=== PATIENT | female | born 1990 | race American Indian/Alaskan Native ===

== ENCOUNTER 2018-12-08 18:59 | Emergency (ER) | payer OTHER ==
--- NOTE | 2018-12-08 20:54 | Emergency Department Report ---
Blank Doc - Documentation Documentation: This is a 28-year-old female that presents with bilateral leg swelling and . This initial assessment/diagnostic orders/clinical plan/treatment(s) is/are subject to change based on patient's health status, clinical progression and re- assessment by fellow clinical providers in the ED. Further treatment and workup at subsequent clinical providers discretion. Patient/guardians urged not to elope from the ED as their condition may be serious if not clinically assessed and managed. Initial orders include: 1- Patient sent to [facility] for further evaluation and treatment 2- labs 3- EKG 4- CXR
[2018-12-08 22:21] LABS: Basophils # (Auto) 0.1 K/mm3 (0.0-0.1); Basophils % (Auto) 0.9 % (0.0-1.8); Eosinophils # (Auto) 0.1 K/mm3 (0.0-0.4); Eosinophils % (Auto) 1.3 % (0.0-4.3); Hematocrit 40.2 % (30.3-42.9); Hemoglobin 13.2 gm/dl (10.1-14.3); Lymphocytes # (Auto) 2.9 K/mm3 (1.2-5.4); Lymphocytes % (Auto) 26.3 % (13.4-35.0); Mean Corpuscular HGB Conc 33 % (30-34); Mean Corpuscular Volume 82 fl (79-97); Monocytes # (Auto) 0.7 K/mm3 (0.0-0.8); Monocytes % (Auto) 6.9 % (0.0-7.3); Platelet Count 253 K/mm3 (140-440); Red Blood Count 4.89 M/mm3 (3.65-5.03); Red Cell Distribution Width 19.8 % (13.2-15.2)
--- NOTE | 2018-12-08 22:24 | Emergency Department Report ---
ED Shortness of Breath HPI - General Chief Complaint: Dyspnea/Respdistress Stated Complaint: SOB/LEGS/ANKLE/FEET SWOLLEN Time Seen by Provider: 12/08/18 20:53 Source: patient Mode of arrival: Ambulatory Limitations: No Limitations - History of Present Illness Initial Comments: 28-year-old female with no significant past medical history [facility] complaining of intermittent ankle and foot swelling 1 week. Symptoms appeared to improve yesterday but returned by this afternoon. For the first time this afternoon she also experienced dyspnea on exertion, fatigue with minimal exertion, and lightheaded feeling. He is having worsening swelling on the right. To the left and having sharp pains from her knee down to her foot. She denies chest pain, calf tenderness, recent travel, control pill use, history of PE/DVT, or recent fever or infection. - Related Data Allergies Allergy/AdvReac Type Severity Reaction Status Date / Time No Known Allergies Allergy Verified 12/08/18 19:11 ED Review of Systems ROS: Stated complaint: SOB/LEGS/ANKLE/FEET SWOLLEN Other details as noted in HPI Comment: All other systems reviewed and negative ED Past Medical Hx - Social History Smoking Status: Never Smoker ED Physical Exam - General Limitations: No Limitations - Other Other exam information: General: No limitations, patient is alert in no acute distress Head exam: Atraumatic, normocephalic Eyes exam: Normal appearance, pupils equal reactive to light, extraocular movements intact ENT: Moist mucous membrane Neck exam: Normal inspection, full range of motion, no meningismus nontender Respiratory exam: Clear to auscultation bilateral, no wheezes, rales, crackles Cardiovascular: Normal rate and rhythm, normal heart sounds Abdomen: Soft, nondistended, and nontender, with normal bowel sounds, no rebound, or guarding Extremity: Full range of motion, mild bilateral edema mildly greater on the right compared to the left primarily at the ankle and foot. Minimal pitting. 2+ DP pulses equal bilaterally. No calf tenderness. No warmth or erythema. Back: Normal Inspection, full range of motion, no tenderness Neurologic: Alert, oriented x3, cranial nerves intact, no motor or sensory deficit Psychiatric: normal affect, normal mood Skin: Warm, dry, intact ED Course Vital Signs 12/08/18 12/08/18 12/08/18 20:53 22:24 22:30 Temperature 98.4 F 98.6 F Pulse Rate 104 H 96 H 98 H Respiratory 18 12 13 Rate Blood Pressure 140/94 133/79 Blood Pressure 134/87 [Left] O2 Sat by Pulse 100 100 99 Oximetry 12/08/18 12/08/18 12/09/18 22:45 23:00 02:30 Temperature Pulse Rate 96 H 99 H Respiratory 15 15 16 Rate Blood Pressure 139/83 132/84 Blood Pressure [Left] O2 Sat by Pulse 100 99 Oximetry ED Medical Decision Making - Lab Data Result diagrams: 12/08/18 21:53 12/08/18 21:53 Lab Results 12/08/18 12/08/18 12/08/18 Range/Units 21:53 21:53 21:53 WBC 10.9 (4.5-11.0) K/mm3 RBC 4.89 (3.65-5.03) M/mm3 Hgb 13.2 (10.1-14.3) gm/dl Hct 40.2 (30.3-42.9) % MCV 82 (79-97) fl MCH 27 L (28-32) pg MCHC 33 (30-34) % RDW 19.8 H (13.2-15.2) % Plt Count 253 (140-440) K/mm3 Lymph % (Auto) 26.3 (13.4-35.0) % [place] % (Auto) 6.9 (0.0-7.3) % Eos % (Auto) 1.3 (0.0-4.3) % Baso % (Auto) 0.9 (0.0-1.8) % Lymph # 2.9 (1.2-5.4) K/mm3 [place] # 0.7 (0.0-0.8) K/mm3 Eos # 0.1 (0.0-0.4) K/mm3 Baso # 0.1 (0.0-0.1) K/mm3 Seg Neutrophils % 64.6 (40.0-70.0) % Seg Neutrophils # 7.1 (1.8-7.7) K/mm3 D-Dimer (0-234) ng/mlDDU Sodium (137-145) mmol/L Potassium (3.6-5.0) mmol/L Chloride (98-107) mmol/L Carbon Dioxide (22-30) mmol/L Anion Gap mmol/L BUN (7-17) mg/dL Creatinine (0.7-1.2) mg/dL Estimated GFR ml/min BUN/Creatinine Ratio % Glucose (65-100) mg/dL Calcium (8.4-10.2) mg/dL Total Bilirubin (0.1-1.2) mg/dL AST (5-40) units/L ALT (7-56) units/L Alkaline Phosphatase (35-129) units/L NT-Pro-B Natriuret Pep 8.51 (0-450) pg/mL Total Protein (6.3-8.2) g/dL Albumin (3.9-5) g/dL Albumin/Globulin Ratio % HCG, Qual Negative (Negative) Urine Color (Yellow) Urine Turbidity (Clear) Urine pH (5.0-7.0) Ur Specific [place] (1.003-1.030) Urine Protein (Negative) mg/dL Urine Glucose (UA) (Negative) mg/dL Urine Ketones (Negative) mg/dL Urine Blood (Negative) Urine Nitrite (Negative) Urine Bilirubin (Negative) Urine Urobilinogen (<2.0) mg/dL Ur Leukocyte Esterase (Negative) Urine WBC (Auto) (0.0-6.0) /HPF Urine RBC (Auto) (0.0-6.0) /HPF U Epithel Cells (Auto) (0-13.0) /HPF Urine Mucus /HPF 12/08/18 12/08/18 12/08/18 Range/Units 21:53 22:24 23:01 WBC (4.5-11.0) K/mm3 RBC (3.65-5.03) M/mm3 Hgb (10.1-14.3) gm/dl Hct (30.3-42.9) % MCV (79-97) fl MCH (28-32) pg MCHC (30-34) % RDW (13.2-15.2) % Plt Count (140-440) K/mm3 Lymph % (Auto) (13.4-35.0) % [place] % (Auto) (0.0-7.3) % Eos % (Auto) (0.0-4.3) % Baso % (Auto) (0.0-1.8) % Lymph # (1.2-5.4) K/mm3 [place] # (0.0-0.8) K/mm3 Eos # (0.0-0.4) K/mm3 Baso # (0.0-0.1) K/mm3 Seg Neutrophils % (40.0-70.0) % Seg Neutrophils # (1.8-7.7) K/mm3 D-Dimer 362.89 H (0-234) ng/mlDDU Sodium 139 (137-145) mmol/L Potassium 3.8 (3.6-5.0) mmol/L Chloride 106.5 (98-107) mmol/L Carbon Dioxide 26 (22-30) mmol/L Anion Gap 10 mmol/L BUN 8 (7-17) mg/dL Creatinine 0.7 (0.7-1.2) mg/dL Estimated GFR > 60 ml/min BUN/Creatinine Ratio 11 % Glucose 137 H (65-100) mg/dL Calcium 8.2 L (8.4-10.2) mg/dL Total Bilirubin 0.80 (0.1-1.2) mg/dL AST 16 (5-40) units/L ALT 16 (7-56) units/L Alkaline Phosphatase 51 (35-129) units/L NT-Pro-B Natriuret Pep (0-450) pg/mL Total Protein 5.9 L (6.3-8.2) g/dL Albumin 3.4 L (3.9-5) g/dL Albumin/Globulin Ratio 1.4 % HCG, Qual (Negative) Urine Color Yellow (Yellow) Urine Turbidity Clear (Clear) Urine pH 5.0 (5.0-7.0) Ur Specific [place] 1.016 (1.003-1.030) Urine Protein <15 mg/dl (Negative) mg/dL Urine Glucose (UA) Neg (Negative) mg/dL Urine Ketones Neg (Negative) mg/dL Urine Blood Neg (Negative) Urine Nitrite Neg (Negative) Urine Bilirubin Neg (Negative) Urine Urobilinogen < 2.0 (<2.0) mg/dL Ur Leukocyte Esterase Neg (Negative) Urine WBC (Auto) 1.0 (0.0-6.0) /HPF Urine RBC (Auto) 3.0 (0.0-6.0) /HPF U Epithel Cells (Auto) 2.0 (0-13.0) /HPF Urine Mucus Few /HPF - EKG Data -: EKG Interpreted by Me EKG shows normal: sinus rhythm, axis (qrs 27), QRS complexes (qrsd 73), ST-T waves (no stemi/t inv) Rate: normal (95) - Radiology Data Radiology results: report reviewed CHEST 2 VIEWS INDICATION / CLINICAL INFORMATION: Chest Pain. COMPARISON: None available. FINDINGS: SUPPORT DEVICES: None. HEART / MEDIASTINUM: No significant abnormality. LUNGS / PLEURA: No significant pulmonary or pleural abnormality. No pneumothorax. ADDITIONAL FINDINGS: No significant additional findings. IMPRESSION: No significant abnormality. - Medical Decision Making She has a low pretest probability for PE status DVT. D-dimer is mildly elevated. Patient declined CT angiogram chest. [facility] Patient is agreeable to received one dose of Lovenox and come back to the hospital tomorrow for bilateral leg DVTs Dopplers to rule out DVT. Patient is noted to have mild decrease in albumin and protein however she does not have any signs of nephrotic syndrome on UA. Patient has normal renal function, BNP, chest x-ray, and function. Patient would need outpatient follow- up and evaluation for further workup of intermittent ankle edema if Doppler tests are negative. - Differential Diagnosis nephrotic syndrome, CHF, renal failure, arthritis, DVT Critical Care Time: No Critical care attestation.: If time is entered above; I have spent that time in minutes in the direct care of this critically ill patient, excluding procedure time. ED Disposition Clinical Impression: Bilateral leg edema, SOB (shortness of breath) Disposition: DC- TO HOME OR SELFCARE Is pt being admited?: No Does the pt Need Aspirin: No Condition: Stable Instructions: Leg Edema (ED), Dyspnea (ED) Additional Instructions: You have declined CAT scan today to rule out a blood clot in the lungs. You did receive 1 dose of blood thinner. Please return in the morning to have ultrasounds of both legs to rule out a blood clot. You should received a call from the vascular Department informing you what time to come in today. If your ultrasound is negative for blood clot it is less likely that you will have a blood clot in the lungs but this cannot be ruled out without a CAT scan or further imaging studies. Follow up with a primary care doctor. Return if symptoms worsen as indicated by your discharge instructions.If your ultrasound is negative and do not require any further blood thinners than you may take Motrin or Tylenol as needed for pain. Referrals: FRANCESCO BOWMAN [Primary Care Provider] - 3-5 Days Time of Disposition: 02:54
[2018-12-08 22:43] LABS: Alanine Aminotransferase 16 units/L (7-56); Albumin 3.4 g/dL (3.9-5); BUN/Creatinine Ratio 11; Blood Urea Nitrogen 8 mg/dL (7-17); Calcium 8.2 mg/dL (8.4-10.2); Hemolysis Index 14
[2018-12-08 22:59] LABS: Bilirubin,Urine NEG (Negative); Blood,Urine NEG (Negative); Color,Urine Yellow (Yellow); Mucus,Urine FEW /HPF; Protein,Urine <15 mg/dL mg/dL (Negative); Urobilinogen,Urine < 2.0 mg/dL (<2.0)
--- NOTE | 2018-12-08 23:19 | XRay Report ---
CHEST 2 VIEWS INDICATION / CLINICAL INFORMATION: Chest Pain. COMPARISON: None available. FINDINGS: SUPPORT DEVICES: None. HEART / MEDIASTINUM: No significant abnormality. LUNGS / PLEURA: No significant pulmonary or pleural abnormality. No pneumothorax. ADDITIONAL FINDINGS: No significant additional findings. IMPRESSION: No significant abnormality. Signer Name: Perico Brown MD FACR Signed: 12/08/2018 11:15 PM Workstation Name: [email or web address]
[2018-12-09] MEDS ORDERED: TORADOL IV ONE (01:08)
[2018-12-09] MEDS ORDERED: LOVENOX SUB-Q ONE (02:46)
[2018-12-09 03:18] VITALS: BP 116/65
== END 2018-12-09 03:10 | disposition home or self-care (01) ==
LOC: ED 18:59
DX: R60.0 Localized edema (principal); R06.02 Shortness of breath
CPT/HCPCS: 36415; 71046; 80053; 81001; 83880; 84703; 85025; 85379; 93005; 93010; 96372; 96374; 99285; J1650; J1885

== ENCOUNTER 2018-12-09 10:48 | Outpatient (CLI) | payer OTHER ==
--- NOTE | 2018-12-09 11:56 | Vascular Lab Report ---
DUPLEX DOPPLER LOWER EXTREMITY VEINS, BILATERAL INDICATION: Bilateral lower extremity edema, elevated d-dimer. TECHNIQUE: Duplex doppler imaging was performed through the veins of both lower extremities using ve nous compression and other maneuvers. COMPARISON: No relevant prior imaging study available. FINDINGS: Right Common femoral vein: Negative. Right Superficial femoral vein: Negative. Right Popliteal vein: Negative. Right Calf veins: Negative. Left Common femoral vein: Negative. Left Superficial femoral vein: Negative. Left Popliteal vein: Negative. Left Calf veins: Negative. Additional findings: None.. IMPRESSION: No sonographic evidence for DVT in either lower extremity. Signer Name: Yoel Moss Jr, MD Signed: 12/09/2018 11:51 AM Workstation Name: [id number]
== END 2018-12-09 10:49 | disposition home or self-care (01) ==
LOC: VAS 10:48
PROVIDERS: ATTEND Emergency Medicine
DX: R60.0 Localized edema (principal)
CPT/HCPCS: 93970